=== PATIENT | female | born 1990 | race Hispanic/Latino ===

== ENCOUNTER 2020-04-04 03:34 | Emergency (ER) | payer OTHER ==
[~2020-04-04] VITALS: Ht 162.6 cm; Wt 68.0 kg
--- NOTE | 2020-04-04 04:10 | NUR ---
45 min ETA for US
--- NOTE | 2020-04-04 04:11 | NUR ---
language line used for translation, Alena Larson #[id number]
--- NOTE | 2020-04-04 05:04 | NUR ---
US at bedside
--- NOTE | 2020-04-04 05:40 | Diagnostic Imaging Report ---
EXAM: First Trimester Obstetric Pelvic Ultrasound INDICATION: ^ PAIN COMPARISON: None TECHNIQUE: Grayscale transverse and sagittal transabdominal were obtained of the pelvis. CLINICAL HISTORY: 29 year old G... Last menstrual period: 01/10/2020 FINDINGS: Uterus: Orientation: Normal Size: 7.8 x 3 x 9.7 cm, mildly enlarged Mass: None Cervix: Normal Gestational Sac: Location: Intrauterine Appearance: Normal in contour Subchorionic hemorrhage: None Yolk sac: Not seen Embryo/Fetus: [place] rump length: 5.7 cm Estimated sonographic GA: 12 weeks 2 days Cardiac activity: 167 bpm Right ovary not seen Left ovary Size: 2.9 x 2.1 x 2.5 cm Mass/Cyst: None No adnexal abnormality. Cul-de-sac: No free fluid IMPRESSION: 1. Viable intrauterine : Routine followup. 2. Estimated sonographic gestational age: 12 weeks 2 days Signed by: Can Bustillos DO on 04/04/2020 5:37 AM
--- NOTE | 2020-04-04 05:53 | Emergency Department Note ---
History of Present Illnes History of Present Illness Chief Complaint: Abdominal Complaints History of Present Illness This is a 29 year old femaleChief Complaint Comment lower abd pain since 1130. pt states she is 3 monhs preg. pain started last night, states she seen PCP yesterday and had normal US and exam. pt states she vomits about 3 times aday through out her preg. denies vag bleeding at this time . Historian: Patient Arrival Mode: Car Onset (how long ago): day(s) Location: pelvic pain Quality: dull Radiation: Denies non-radiation, Denies back, Denies neck, Denies extremity, Denies abdomen, Denies periumbilical, Denies flank, Denies proximal, Denies distal, Denies other Severity: mild Onset quality: gradual Duration (how long): day(s) (1) Timing of current episode: intermittent Progression: waxing and waning Chronicity: new Context: Denies recent illness, Denies recent surgery, Denies recent immobilization, Denies recent travel, Denies trauma/injury, Denies new medications, Denies hx of DVT/PE, Denies non-compliance w/ medications, Denies other Relieving factors: none Exacerbating factors: none Associated symptoms: Denies denies other symptoms, Denies confusion, Denies chest pain, Denies cough, Denies diaphoresis, Denies fever/chills, Denies headaches, Denies loss of appetite, Denies malaise, Denies nausea/vomiting, Denies rash, Denies seizure, Denies shortness of breath, Denies syncope, Denies weakness, Denies other Treatments prior to arrival: none Past Medical/Family History Physician Review I have reviewed the patient's past medical and family history. Any updates have been documented here. Past Medical History Recent Fever: No Clinical Suspicion of Infectio: No New/Unexplained Change in Ment: No Past Medical History: None Other Surgery: left arm surgery for FX Social History Smoking Cessation: Never Smoker Counseling Performed: No Alcohol Use: None Any Illegal Drug Use: No Physically hurt or threatened: No Other Any Pre-Existing Lines (PICC,: No Review of Systems Review of Systems Constitutional: Reports no symptoms EENTM: Reports no symptoms Cardiovascular: Reports no symptoms Respiratory: Reports no symptoms Gastrointestinal: Reports no symptoms Genitourinary: Reports as per HPI Musculoskeletal: Reports no symptoms Integumentary: Reports no symptoms Neurological: Reports no symptoms Psychological: Reports no symptoms Endocrine: Reports no symptoms Hematological/Lymphatic: Reports no symptoms Physical Exam Related Data Allergies: Coded Allergies: No Known Allergies (Unverified , 04/04/20) Triage Vital Signs Vital Signs Date Time Temp Pulse Resp B/P (MAP) Pulse Ox O2 Delivery O2 Flow Rate FiO2 04/04/20 04:12 98.1 96 18 123/80 100 Room Air Vital signs reviewed: Yes Physical Exam CONSTITUTIONAL Constitutional: Present well-developed, Present well-nourished HENT HENT: Present normocephalic, Present atraumatic, Present oropharynx clear/moist, Present nose normal HENT L/R: Present left ext ear normal, Present right ext ear normal; Absent left TM normal, Absent right TM normal, Absent left canal normal, Absent right canal normal, Absent left impacted cerumen, Absent right impacted cerumen, Absent left bulging TM, Absent right bulging TM, Absent other EYES Eyes: Reports PERRL, Reports conjunctivae normal; Denies EOM normal, Denies lids normal, Denies left eye discharge, Denies right eye discharge, Denies scleral icterus, Denies other NECK Neck: Present ROM normal; Absent supple, Absent thyromegaly, Absent tracheal deviation, Absent stridor, Absent JVD, Absent cervical adenopathy, Absent carotid bruit, Absent other PULMONARY Pulmonary: Present effort normal, Present breath sounds normal; Absent respiratory distress, Absent rales, Absent rhonchi, Absent chest tenderness, Absent other CARDIOVASCULAR Cardiovascular: Present regular rhythm, Present heart sounds normal, Present capillary refill normal, Present normal rate; Absent irregular rhythm, Absent intact distal pulses, Absent tachycardia, Absent bradycardia, Absent murmur, Absent gallop, Absent friction rub, Absent palpable pulses, Absent strong pulses, Absent weak pulses, Absent LLE edema, Absent RLE edema, Absent other GASTROINTESTINAL Abdominal: Present soft, Present nontender, Present bowel sounds normal; Absent distension, Absent tender, Absent guarding, Absent mass, Absent rebound, Absent hernia, Absent left CVA tenderness, Absent right CVA tenderness, Absent other GENITOURINARY Genitourinary: Present exam deferred SKIN Skin: Present warm, Present dry; Absent erythema, Absent pale, Absent rash, Absent jaundiced, Absent bruising, Absent lesion, Absent other MUSCULOSKELETAL Musculoskeletal: Present ROM normal; Absent edema, Absent deformity, Absent tenderness, Absent swelling, Absent other NEUROLOGICAL Neurological: Present alert, Present oriented x 3, Present no gross motor or sensory deficits PSYCHOLOGICAL Psychological: Present mood/affect normal, Present judgement normal Results Laboratory Lab results reviewed: Yes Imaging Imaging results reviewed: Yes Assessment & Plan Medical Decision Making MDM threatened ab Reassessment Reassessment time: 05:52 Reassessment better Assessment & Plan Final Impression: (1) Threatened Depart Disposition: HOME, SELF-CARE Last Vital Signs Date Time Temp Pulse Resp B/P (MAP) Pulse Ox O2 Delivery O2 Flow Rate FiO2 04/04/20 04:12 98.1 96 18 123/80 100 Room Air ROSARIO CASTRO MD Apr 04, 2020 05:52
== END 2020-04-04 06:05 | disposition home or self-care (01) ==
LOC: FSED 04:05
DX: O20.0 Threatened abortion (principal); O21.9 Vomiting of pregnancy, unspecified; R10.30 Lower abdominal pain, unspecified
CPT/HCPCS: 76801; 80053; 81003; 85025; 99284

== ENCOUNTER 2020-04-04 11:24 | Emergency (ER) | payer OTHER ==
[~2020-04-04] VITALS: Ht 162.6 cm; Wt 68.0 kg
--- NOTE | 2020-04-04 11:46 | Emergency Department Note ---
History of Present Illnes History of Present Illness Chief Complaint: vaginal spotting pregnent History of Present Illness This is a 29 year old female . Historian: Patient Arrival Mode: Car History limited by: language barrier (translation by me Dr Castro) Composition Professor Required: Yes Onset (how long ago): hour(s) Location: vaginal Quality: spotting Radiation: Reports non-radiation Severity: mild Onset quality: sudden Duration (how long): hour(s) Timing of current episode: intermittent Progression: unchanged Chronicity: new Relieving factors: none Exacerbating factors: none Treatments prior to arrival: other (seen last night 12 week 2 day IUP viable) Risk factors: preg saw her OB/ DRIVER TRAINEE yesterday all was well and got a flu shot Past Medical/Family History Physician Review I have reviewed the patient's past medical and family history. Any updates have been documented here. Past Medical History Recent Fever: No Clinical Suspicion of Infectio: No New/Unexplained Change in Ment: No Past Medical History: None Other Medical History: denies Other Surgery: left arm surgery for FX Social History Smoking Cessation: Never Smoker Alcohol Use: None Any Illegal Drug Use: No TB Exposure/Symptoms: No Physically hurt or threatened: No Other Any Pre-Existing Lines (PICC,: No Is patient up to date on immun: No Review of Systems Review of Systems Constitutional: Reports no symptoms EENTM: Reports no symptoms Cardiovascular: Reports no symptoms Respiratory: Reports no symptoms Gastrointestinal: Reports no symptoms Genitourinary: Reports pain (supra pubic) Musculoskeletal: Reports no symptoms Integumentary: Reports no symptoms Neurological: Reports no symptoms Psychological: Reports no symptoms Endocrine: Reports no symptoms Hematological/Lymphatic: Reports no symptoms Review of other systems: All other systems negative Physical Exam Related Data Allergies: Coded Allergies: No Known Allergies (Unverified , 04/04/20) Physical Exam CONSTITUTIONAL Constitutional: Present well-developed, Present well-nourished HENT HENT: Present normocephalic, Present atraumatic EYES Eyes: Reports PERRL, Reports conjunctivae normal, Reports EOM normal, Reports lids normal NECK Neck: Present ROM normal, Present supple PULMONARY Pulmonary: Present effort normal, Present breath sounds normal CARDIOVASCULAR Cardiovascular: Present regular rhythm, Present heart sounds normal, Present intact distal pulses, Present capillary refill normal, Present normal rate GASTROINTESTINAL Abdominal: Present soft, Present nontender GENITOURINARY Genitourinary: Present vagina normal, Present other (bimanual mild Cervical motion tenderness os closed and no blood noted on gloved hand done with sterile glove) SKIN Skin: Present warm, Present dry MUSCULOSKELETAL Musculoskeletal: Present ROM normal NEUROLOGICAL Neurological: Present alert, Present oriented x 3, Present DTRs normal, Present no gross motor or sensory deficits PSYCHOLOGICAL Psychological: Present mood/affect normal, Present behavior normal, Present thought content normal, Present judgement normal Results Laboratory Laboratory today H/H yesterday otherwise unchanged Lab results reviewed: Yes Laboratory comments ABO/RH O+ Diagnostics Tests Diagnostic test(s) reviewed: Yes Diagnostic comments labs from earlier visit reviewed and are unremarkable. ABO/ RH not done and will be done today, cbc will be repeted Assessment & Plan Medical Decision Making MDM spoke with Ob/ DRIVER TRAINEE Dr Jayne Lua in detail including repeat CBC . He told me her blood type O + no need for rhogam. He stated that the patient should call his office and follow up SHAHAB. I told the patient to return to the ER for any further issues or if the bleeding should worsen Reassessment Reassessment time: 12:20 (stable unchanged) Assessment & Plan Final Impression: (1) Threatened in second trimester Depart Disposition: HOME, SELF-CARE SHANA CASTRO MD Apr 04, 2020 11:46
[2020-04-04] MEDS ORDERED: SODIUM CHLORIDE 0.9% 1000 ML BAG IV ONE (12:00)
[2020-04-04] MEDS ORDERED: SODIUM CHLORIDE 0.9% 1000ML 1,000 ML ONE (12:39)
== END 2020-04-04 13:57 | disposition home or self-care (01) ==
LOC: FSED 11:49
DX: O20.0 Threatened abortion (principal)
CPT/HCPCS: 85025; 86900; 99283; J7030